=== PATIENT | male | born 1935 | race Caucasian/White ===

== ENCOUNTER 2017-05-25 21:41 | Emergency (ER) | payer MEDICARE, MEDICAID ==
[~2017-05-25] VITALS: Ht 170.2 cm; Wt 68.0 kg
[~2017-05-25 21:41] MED LIST: AMIO100T4 PO; ASPI-1159 PO; ATOR20TA65 PO; CARB25TA3 PO; CARV3.1242 PO; CLON0.1T PO; DONE5TAB33 PO; ESOM20CA PO; FERR-43 PO; FURO40TA5 PO; GLIP10TA10 PO; METF500T4 PO; MIRT15TA6 PO; OMEP20TA2 PO; POTA10TA15 PO; QUET25TA PO; REQ1 PO; ROSU20TA PO; SPIR25TA4 PO; STAR120 PO
[2017-05-25] MEDS ORDERED: LORAZEPAM 2MG/ML CPJ IV ONE (22:30)
[2017-05-25 22:59] LABS: HEMATOCRIT. 25.5 % (42.0-52.0); HEMOGLOBIN. 8.3 g/dL (14.0-18.0); MEAN CORPUSCULAR HEMOGLOBIN 28.7 pg (28.0-32.0); MEAN CORPUSCULAR VOLUME 87.9 fL (80.0-94.0); MEAN PLATELET VOLUME 7.2 fl (7.4-10.4); PLATELET 208 x1000/uL (130-400); RED CELL DISTRIBUTION WIDTH 15.9 % (11.6-14.6)
[2017-05-25 23:05] LABS: INR 1.2; PROTHROMBIN TIME 12.7 sec (9.4-11.6)
[2017-05-25 23:07] LABS: CHLORIDE 105 mEq/L (98-107); PLATELET ESTIMATE NORMAL
[2017-05-25 23:11] LABS: CARBON DIOXIDE 24 mEq/L (21-32); ETHANOL BLOOD < 10 mg/dL
[2017-05-25 23:17] LABS: TROPONIN I 0.07 ng/mL (0.00-0.04)
[2017-05-26 00:11] LABS: GLUCOSE URINE TRACE (NEGATIVE); KETONES URINE TRACE (NEGATIVE); LEUKOCYTE ESTERASE URINE NEGATIVE (NEGATIVE); NITRITE URINE NEGATIVE (NEGATIVE); OCCULT BLOOD URINE NEGATIVE (NEGATIVE); PH URINE 5.5 (4.5-8.0); PROTEIN URINE 1+ (NEGATIVE); SPECIFIC GRAVITY URINE 1.022 (1.005-1.030)
[2017-05-26 00:16] LABS: CLARITY URINE SL HAZY (CLEAR); COLOR URINE YELLOW (YELLOW)
[2017-05-26 00:23] LABS: *AMPHETAMINES SCREEN URINE NEGATIVE (NEGATIVE); *BARBITURATES SCREEN URINE NEGATIVE (NEGATIVE); *BENZODIAZEPINES SCREEN URINE NEGATIVE (NEGATIVE); *COCAINE SCREEN URINE NEGATIVE (NEGATIVE); CANNABINOID URINE SCREEN NEGATIVE (NEGATIVE); METHADONE URINE SCREEN NEGATIVE (NEGATIVE); OPIATES URINE SCREEN PRESUMTIVE POSITIVE (NEGATIVE); PHENCYCLIDINE URINE SCREEN NEGATIVE (NEGATIVE)
[2017-05-26] MEDS ORDERED: SODIUM CHLORIDE 0.9% 500 ML IV ONE (01:29)
[2017-05-26] MEDS ORDERED: IOHEXOL-300 100 ML BOTTLE ONE (02:10)
[2017-05-26 05:15] VITALS: BP 110/62
== END 2017-05-26 06:30 | disposition short-term general hospital (02) ==
LOC: ER 22:25 → EDBEDREQ 05-26 00:57 → EDBEDREQTM 05-26 00:57 → EDBEDREQSVC 05-26 00:57 → CANBEDREQ 05-26 04:26 → ER 05-26 06:30
DX: D64.9 Anemia, unspecified (principal); S40.811A Abrasion of right upper arm, initial encounter; G93.40 Encephalopathy, unspecified; E87.70 Fluid overload, unspecified; N28.9 Disorder of kidney and ureter, unspecified; R45.1 Restlessness and agitation; R41.0 Disorientation, unspecified; J44.9 Chronic obstructive pulmonary disease, unspecified; I25.10 Atherosclerotic heart disease of native coronary artery without angina pectoris; I10 Essential (primary) hypertension; R44.3 Hallucinations, unspecified; F03.90 Unspecified dementia, unspecified severity, without behavioral disturbance, psychotic disturbance, mood disturbance, and anxiety; E78.00 Pure hypercholesterolemia, unspecified; E03.9 Hypothyroidism, unspecified; Z95.0 Presence of cardiac pacemaker; Z95.1 Presence of aortocoronary bypass graft; Z79.82 Long term (current) use of aspirin
CPT/HCPCS: 36415; 70450; 71010; 71260; 74176; 74177; 80053; 80305; 81001; 82962; 83605; 83690; 83880; 84484; 85025; 85610; 86850; 86900; 86901; 87040; 87086; 93005; 96361; 96374; 99285; G0482; J2060; J7030; Q9967; 81003